=== PATIENT | male | born 1995 | race Caucasian/White ===

== ENCOUNTER 2016-09-04 22:47 | Emergency (ER) | payer SELFPAY | END 2016-09-04 23:00 | disposition home or self-care (01) | LOC: ER 22:47 | PROC: 0HQGXZZ Repair Left Hand Skin, External Approach (ICD-10-PCS; principal; 2016-09-04) | DX: S61.215A Laceration without foreign body of left ring finger without damage to nail, initial encounter (principal); F17.200 Nicotine dependence, unspecified, uncomplicated; W27.8XXA Contact with other nonpowered hand tool, initial encounter | CPT/HCPCS: 73130-LT; 99283; A9270-GY ==